=== PATIENT | female | born 2000 | race Two or more races ===

== ENCOUNTER 2023-04-17 20:24 | Emergency (ER) | payer OTHER ==
[~2023-04-17] VITALS: Ht 152.4 cm; Wt 47.6 kg
[2023-04-18] MEDS ORDERED: KETO10TA2 PO (05:13)
== END 2023-04-18 05:21 ==
LOC: ER 20:24
DX: R10.9 Unspecified abdominal pain (principal)

== ENCOUNTER 2024-07-03 08:59 | Outpatient (CLI) | payer OTHER ==
[~2024-07-03 08:59] MED LIST: KETO10TA2 PO
== END 2024-07-03 09:09 | disposition home or self-care (01) ==
LOC: RAD 08:59
PROVIDERS: ATTEND Orthopaedic Surgery
DX: S92.351A Displaced fracture of fifth metatarsal bone, right foot, initial encounter for closed fracture (principal)

== ENCOUNTER 2024-09-04 12:23 | Outpatient (CLI) | payer OTHER | END 2024-09-04 12:32 | disposition home or self-care (01) | LOC: RAD 12:23 | PROVIDERS: ATTEND Orthopaedic Surgery | DX: S92.351D Displaced fracture of fifth metatarsal bone, right foot, subsequent encounter for fracture with routine healing (principal) ==

== ENCOUNTER 2024-09-15 09:01 | Outpatient (CLI) | payer OTHER ==
[2024-09-15 11:00] LABS: HEMATOCRIT 36.3 % (36.0-45.00); HEMOGLOBIN 11.9 g/dL (12.0-15.00); MEAN CELL VOLUME 76.3 fL (80.00-100.00); MEAN CORPUSCULAR HEMOGLOBIN 24.9 pg (27.00-32.0); MEAN CORPUSCULAR HGB CONC 32.6 g/dl (32.0-36.0); PLATELET COUNT 345 K/uL (150-450); RED BLOOD COUNT 4.76 M/uL (4.00-6.00); RED CELL DISTRIBUTION WIDTH 17.8 % (11.5-14.5)
[2024-09-15 11:12] LABS: COL EPI 96 SECONDS (82-175)
[2024-09-15 11:20] LABS: URINE APPEARANCE Clear; URINE BILIRRUBIN Negative (NEGATIVE); URINE BLOOD Negative; URINE COLOR Yellow; URINE GLUCOSE Negative (NEGATIVE); URINE KETONE Negative (NEGATIVE); URINE LEUKOCYTE Negative; URINE NITRATE Negative; URINE PROTEIN Negative (NEGATIVE); URINE UROBILINOGEN 0.2 E.U./dl
[2024-09-15 11:30] LABS: INR 1.05; PARTIAL THROMBOPLASTIN TIME 29.7 SECONDS (22.0-34.0); PROTHROMBIN TIME 11.4 SECONDS (9.0-11.5)
[2024-09-15 11:37] LABS: ALBUMIN 4.2 gm/dL (3.4-5.0); BILIRUBIN TOTAL 0.54 mg/dL (0.3-1.2); CALCIUM 9.3 mg/dL (8.5-10.1); CREATININE SERUM 0.64 mg/dL (0.55-1.02); GFR 116.04; POTASSIUM 3.99 mEq/L (3.5-5.1); TOTAL PROTEIN 8.2 gm/dL (6.4-8.2)
[2024-09-15 12:01] LABS: URINE BACTERIA 2080.1 uL (0.0-1933)
[2024-09-15 12:02] LABS: URINE CAST 0.76 uL (0.0-1.40)
== END 2024-09-15 09:02 | disposition home or self-care (01) ==
LOC: RAD 09:01
PROVIDERS: ATTEND Orthopaedic Surgery
DX: D64.9 Anemia, unspecified (principal); E88.89 Other specified metabolic disorders; D68.8 Other specified coagulation defects; N39.0 Urinary tract infection, site not specified; Z22.322 Carrier or suspected carrier of Methicillin resistant Staphylococcus aureus; E11.9 Type 2 diabetes mellitus without complications; I10 Essential (primary) hypertension; Z76.89 Persons encountering health services in other specified circumstances

== ENCOUNTER 2024-10-16 13:25 | Outpatient (CLI) | payer OTHER | END 2024-10-16 13:34 | disposition home or self-care (01) | LOC: RAD 13:25 | PROVIDERS: ATTEND Orthopaedic Surgery | DX: S92.351D Displaced fracture of fifth metatarsal bone, right foot, subsequent encounter for fracture with routine healing (principal) ==